=== PATIENT | male | born 1980 | race Caucasian/White ===

== ENCOUNTER 2018-12-28 01:57 | Outpatient (CLI) | payer MEDICARE, MEDICAID, SELFPAY ==
[2018-12-28 14:40] LABS: TROPONIN-I 4.9 ug/mL (4.0-12.0)
[2018-12-30 10:44] LABS: Levetiracetam 10.7 mcg/mL
== END 2018-12-28 02:17 ==
PROVIDERS: PCP Family Medicine; Visit Provider Family Medicine
DX: R56.9 Unspecified convulsions (principal); Z51.81 Encounter for therapeutic drug level monitoring; Z79.899 Other long term (current) drug therapy
CPT/HCPCS: 36415; 80156; 80177

== ENCOUNTER → 2019-02-15 13:43 | Outpatient (BNVA) | payer MEDICARE, MEDICAID, SELFPAY | PROVIDERS: PCP Family Medicine; Referring Provider Family Medicine; Visit Provider Psychiatry & Neurology Neurology | DX: G40.119 Localization-related (focal) (partial) symptomatic epilepsy and epileptic syndromes with simple partial seizures, intractable, without status epilepticus (principal); F81.9 Developmental disorder of scholastic skills, unspecified | CPT/HCPCS: 99205 ==

== ENCOUNTER → 2019-04-17 09:39 | Outpatient (BNVA) | payer MEDICARE, MEDICAID, SELFPAY | PROVIDERS: PCP Family Medicine; Referring Provider Family Medicine; Visit Provider Psychiatry & Neurology Neurology | DX: R56.9 Unspecified convulsions (principal) | CPT/HCPCS: 99213 ==

== ENCOUNTER → 2019-05-15 14:34 | Outpatient (BNVA) | payer MEDICARE, MEDICAID, SELFPAY | PROVIDERS: PCP Family Medicine; Referring Provider Family Medicine; Visit Provider Psychiatry & Neurology Neurology | DX: G40.119 Localization-related (focal) (partial) symptomatic epilepsy and epileptic syndromes with simple partial seizures, intractable, without status epilepticus (principal); F81.9 Developmental disorder of scholastic skills, unspecified | CPT/HCPCS: 99214 ==

== ENCOUNTER → 2019-07-17 13:52 | Outpatient (BNVA) | payer MEDICARE, SELFPAY | PROVIDERS: PCP Family Medicine; Referring Provider Family Medicine; Visit Provider Psychiatry & Neurology Neurology | DX: G40.119 Localization-related (focal) (partial) symptomatic epilepsy and epileptic syndromes with simple partial seizures, intractable, without status epilepticus (principal); F81.9 Developmental disorder of scholastic skills, unspecified | CPT/HCPCS: 99214 ==

== ENCOUNTER → 2019-09-14 13:41 | Outpatient (BNVA) | payer MEDICARE, SELFPAY | PROVIDERS: PCP Family Medicine; Referring Provider Family Medicine; Visit Provider Psychiatry & Neurology Neurology | DX: G40.119 Localization-related (focal) (partial) symptomatic epilepsy and epileptic syndromes with simple partial seizures, intractable, without status epilepticus (principal); F81.9 Developmental disorder of scholastic skills, unspecified | CPT/HCPCS: 99214; 99443 ==

== ENCOUNTER → 2019-10-19 07:44 | Outpatient (BNVA) | payer MEDICARE, MEDICAID, SELFPAY | PROVIDERS: PCP Family Medicine; Referring Provider Family Medicine; Visit Provider Psychiatry & Neurology Neurology | DX: G40.119 Localization-related (focal) (partial) symptomatic epilepsy and epileptic syndromes with simple partial seizures, intractable, without status epilepticus (principal); F81.9 Developmental disorder of scholastic skills, unspecified | CPT/HCPCS: 99214; 99443 ==

== ENCOUNTER → 2019-11-29 12:33 | Outpatient (BNVA) | payer MEDICARE, MEDICAID, SELFPAY | PROVIDERS: PCP Family Medicine; Referring Provider Family Medicine; Visit Provider Psychiatry & Neurology Neurology | DX: G40.119 Localization-related (focal) (partial) symptomatic epilepsy and epileptic syndromes with simple partial seizures, intractable, without status epilepticus (principal); F81.9 Developmental disorder of scholastic skills, unspecified; R68.89 Other general symptoms and signs | CPT/HCPCS: 99214; 99442 ==

== ENCOUNTER 2019-12-04 01:40 | Outpatient (CLI) | payer MEDICARE, MEDICAID, SELFPAY ==
--- NOTE | 2019-12-06 15:29 | PDOC.EEG ---
Neurology EEG EEG: [facility] Department of Neurology LONG-TERM AMBULATORY EEG REPORT Date of Recordin12/04/19 at 14:19:03 to 12/05/19 at 06:30:32 Interpreting Physician: Dr. Rossy Carmen PCP/Referring Provider: Dr. Camilo Brower Reason for study: Mr. Ugarte is a 39 year-old man with medically intractable focal epilepsy and previous left craniotomy who has had an increase in seizure frequency, despite numerous medication changes. Current Medications: Home Medications Medication Instructions Recorded Confirmed Type carbamazepine 200 mg 400 mg PO BID #360 tab-cap 04/17/19 11/29/19 Rx tablet,extended release,12 hr clobazam 10 mg tablet 20 mg PO QHS #60 tab 10/19/19 11/29/19 Rx miscellaneous medical supply 1 each HS #1 each 11/29/19 11/29/19 Rx METHODS: An 18-channel digitized electroencephalogram was recorded in the ambulatory setting with video. The 10/20 international system of electrode placement was used and bipolar and referential electrode montages were recorded. In addition to EEG the patient was monitored for EKG and by video. Activation procedures of photic stimulation and hyperventilation were performed if applicable. The duration of the recording was ~16 hours. DESCRIPTION OF EEG: Waking background activity: During maximal wakefulness a 7-Hz posterior background rhythm was present which was poorly-modulated, symmetrical, reactive to eye opening, and of moderate voltage. Faster frequencies were present in the bilateral anterior head regions. There was a normal anterior-posterior voltage gradient. Drowsy and sleeping background activity: During drowsiness, there was attenuation of the posterior dominant background rhythm and vertex waves. Normal stage II and III sleep was present with symmetrical sleep spindles, K-complexes, and vertex waves with slowing of the background rhythm to delta/theta frequencies. REM sleep manifested by rapid lateral eye movements and faster background rhythms was recorded. Arousal was unremarkable. Interictal abnormalities: He has occasional left temporal spike-waves at T3. These become more frequent during drowsiness and sleep and can occur in non-rhythmic runs <10seconds. He has rare right temporal spike-waves, more frequent during drowsiness and sleep, at T4>T6. He has occasional left > right temporal, independent, polymorphic delta slowing. These were occasionally associated with sharp waves which were not clearly epileptic. He has rare generalized, polymorphic delta slowing during wakefulness. He has no obvious breech rhythm. Ictal findings: No events recorded or reported. Activating Procedures: Photic stimulation was performed which produced a symmetrical posterior driving response at various flash frequencies. Hyperventilation was performed with moderate effort and produced mild-moderate physiological slowing of the background. EKG: EKG revealed normal sinus rhythm. INTERPRETATION: This long-term EEG is abnormal due to: #1. Frequent left temporal (T3) spike-wave discharges, more frequent during drowsiness and sleep, occasionally occurring in short, non-rhythmic bursts. #2. Rare right temporal (T4/T6) spike-wave discharges, more prominent during drowsiness and sleep. #3. Left temporal > right temporal, independent, polymorphic delta slowing. #4. Slowing of the PDR with rare generalized, polymorphic delta slowing. PRIOR EEG: -Amb EEG (05/16/13 at [facility]): normal. No events captured. -vEEG (Jun 2013) at [facility] [place] Interictally, he was noted to have independent bilateral anterior temporal sharp waves at T4 greater than T3; 6 epileptic events captured with some onset on right and some on left; -intracranial EEG (August 2015 x 16 days): 14 events captured with onset in simultaneous areas of the left hemisphere CLINICAL CORRELATION: This recording represents the interictal expression of a localization-related multi-focal epilepsy. No seizures or clinical events were recorded. There were non-rhythmic runs of spike-waves in the left temporal lobe, more often in sleep. It's possible these could cause clinical symptoms. The focal slowing represents areas of focal cerebral dysfunction. The background and generalized slowing is suggestive of a mild diffuse cerebral encephalopathy, consistent with his known cognitive impairment. Rossy Caremn MD
== END 2019-12-04 02:00 ==
PROVIDERS: PCP Family Medicine; Visit Provider Psychiatry & Neurology Neurology
DX: G40.909 Epilepsy, unspecified, not intractable, without status epilepticus (principal)
CPT/HCPCS: 95714; 95720

== ENCOUNTER → 2019-12-07 07:25 | Outpatient (BNVA) | payer MEDICARE, SELFPAY | PROVIDERS: PCP Family Medicine; Referring Provider Family Medicine; Visit Provider Psychiatry & Neurology Neurology | DX: R69 Illness, unspecified (principal) ==

== ENCOUNTER → 2020-01-10 09:23 | Outpatient (BNVA) | payer MEDICARE, SELFPAY | PROVIDERS: PCP Family Medicine; Visit Provider Psychiatry & Neurology Neurology | DX: R69 Illness, unspecified (principal) ==

== ENCOUNTER → 2020-04-10 11:10 | Outpatient (BNVA) | payer MEDICARE, MEDICAID, SELFPAY | PROVIDERS: Visit Provider Psychiatry & Neurology Neurology | DX: G40.119 Localization-related (focal) (partial) symptomatic epilepsy and epileptic syndromes with simple partial seizures, intractable, without status epilepticus (principal); F81.9 Developmental disorder of scholastic skills, unspecified; G40.109 Localization-related (focal) (partial) symptomatic epilepsy and epileptic syndromes with simple partial seizures, not intractable, without status epilepticus | CPT/HCPCS: 99214 ==

== ENCOUNTER → 2020-06-17 08:05 | Outpatient (BNVA) | payer MEDICARE, MEDICAID, SELFPAY | PROVIDERS: Visit Provider Psychiatry & Neurology Neurology | DX: G40.109 Localization-related (focal) (partial) symptomatic epilepsy and epileptic syndromes with simple partial seizures, not intractable, without status epilepticus; G40.119 Localization-related (focal) (partial) symptomatic epilepsy and epileptic syndromes with simple partial seizures, intractable, without status epilepticus; F81.9 Developmental disorder of scholastic skills, unspecified; Z62.810 Personal history of physical and sexual abuse in childhood | CPT/HCPCS: 99443 ==

== ENCOUNTER → 2021-09-23 10:33 | Outpatient (BNVA) | payer MEDICARE, MEDICAID, SELFPAY | PROVIDERS: Visit Provider Psychiatry & Neurology Neurology | DX: G40.119 Localization-related (focal) (partial) symptomatic epilepsy and epileptic syndromes with simple partial seizures, intractable, without status epilepticus (principal); F81.9 Developmental disorder of scholastic skills, unspecified | CPT/HCPCS: 99214 ==

== ENCOUNTER → 2021-11-25 10:34 | Outpatient (BNVA) | payer OTHER, MEDICAID, SELFPAY | PROVIDERS: Visit Provider Psychiatry & Neurology Neurology | DX: G40.119 Localization-related (focal) (partial) symptomatic epilepsy and epileptic syndromes with simple partial seizures, intractable, without status epilepticus (principal); F81.9 Developmental disorder of scholastic skills, unspecified | CPT/HCPCS: 99214 ==

== ENCOUNTER → 2022-03-24 14:52 | Outpatient (BNVA) | payer OTHER, MEDICAID, SELFPAY | PROVIDERS: Visit Provider Psychiatry & Neurology Neurology | DX: F41.9 Anxiety disorder, unspecified (principal); G40.109 Localization-related (focal) (partial) symptomatic epilepsy and epileptic syndromes with simple partial seizures, not intractable, without status epilepticus; F81.9 Developmental disorder of scholastic skills, unspecified | CPT/HCPCS: 99214 ==

== ENCOUNTER 2022-04-07 02:32 | Outpatient (CLI) | payer OTHER, MEDICAID, SELFPAY ==
[2022-04-07 12:43] LABS: HCT 45.3 % (40.0-50.0); HGB 14.8 g/dL (13.5-17.5); MCHC 32.7 % (32.0-36.0); MCV 89 fL (80-95); MPV 10.3 fL (8.0-11.0); Platelet Count 296 10^3/uL (130-400); RDW 12.4 % (11.8-14.1); RDW-SD 40.4 fL; WBC 6.63 10^3/uL (4.4-10.8)
[2022-04-07 13:12] LABS: ALT 39 U/L (16-63); AST 23 U/L (15-37); Albumin 4.1 g/dL (3.4-5.0); Alkaline Phosphatase 111 U/L (46-116); Anion Gap 6.7 mmol/L (3-11); BUN 11 mg/dL (7-18); Bilirubin, Total 0.5 mg/dL (0.2-1.0); CO2 31.3 mmol/L (21.0-32.0); CREATININE 0.9 mg/dL (0.70-1.30); Calcium 8.9 mg/dL (8.5-10.1); Chloride 103 mmol/L (98-107); Estimated GFR 110.04 (mL/min/1.73m2); Glucose 101 mg/dL (74-106); Potassium 4.1 mmol/L (3.5-5.1); Sodium 141 mmol/L (136-145); TROPONIN-I 6.8 ug/mL (4.0-12.0)
[2022-04-08 16:23] LABS: Levetiracetam <2.0 mcg/mL
== END 2022-04-07 02:33 | disposition home or self-care (01) ==
LOC: LOS 02:32
PROVIDERS: Visit Provider Psychiatry & Neurology Neurology
DX: G40.109 Localization-related (focal) (partial) symptomatic epilepsy and epileptic syndromes with simple partial seizures, not intractable, without status epilepticus (principal); G40.119 Localization-related (focal) (partial) symptomatic epilepsy and epileptic syndromes with simple partial seizures, intractable, without status epilepticus; F80.9 Developmental disorder of speech and language, unspecified
CPT/HCPCS: 36415; 80053; 80346; 85027; 80156; 80177

== ENCOUNTER → 2022-09-22 12:44 | Outpatient (BNVA) | payer OTHER, MEDICAID, SELFPAY | PROVIDERS: PCP Nurse Practitioner Family; Visit Provider Psychiatry & Neurology Neurology | DX: G40.119 Localization-related (focal) (partial) symptomatic epilepsy and epileptic syndromes with simple partial seizures, intractable, without status epilepticus (principal); F81.9 Developmental disorder of scholastic skills, unspecified | CPT/HCPCS: 99213 ==

== ENCOUNTER → 2023-03-23 12:56 | Outpatient (BNVA) | payer OTHER, MEDICAID, SELFPAY | PROVIDERS: PCP Nurse Practitioner Family; Referring Provider Nurse Practitioner Family; Visit Provider Psychiatry & Neurology Neurology | DX: G40.119 Localization-related (focal) (partial) symptomatic epilepsy and epileptic syndromes with simple partial seizures, intractable, without status epilepticus (principal); F81.9 Developmental disorder of scholastic skills, unspecified | CPT/HCPCS: 99213 ==

== ENCOUNTER → 2023-09-21 12:48 | Outpatient (BNVA) | payer OTHER, MEDICAID, SELFPAY | PROVIDERS: PCP Nurse Practitioner Family; Referring Provider Nurse Practitioner Family; Visit Provider Psychiatry & Neurology Neurology | DX: G40.109 Localization-related (focal) (partial) symptomatic epilepsy and epileptic syndromes with simple partial seizures, not intractable, without status epilepticus; F81.9 Developmental disorder of scholastic skills, unspecified | CPT/HCPCS: 99213 ==

== ENCOUNTER 2023-09-21 14:24 | Outpatient (CLI) | payer OTHER, MEDICAID, SELFPAY ==
[2023-09-21 13:46] LABS: HCT 42.9 % (40.0-50.0); MCH 28.8 pg (27.0-33.0); MCV 82 fL (80-95); MPV 10.3 fL (8.0-11.0); Platelet Count 282 10^3/uL (130-400); RBC 5.21 10^6/uL (4.36-5.78); RDW 11.8 % (11.8-14.1); RDW-SD 35.1 fL; WBC 7.55 10^3/uL (4.4-10.8)
[2023-09-21 14:18] LABS: BUN 9 mg/dL (7-18); CREATININE 0.8 mg/dL (0.70-1.30); Calcium 9.1 mg/dL (8.5-10.1); Chloride 98 mmol/L (98-107); Cholesterol 314 mg/dL (<200); Estimated GFR 113.32 (mL/min/1.73m2); Glucose 419 mg/dL (74-106); HDL Cholesterol 38 mg/dL (40-60); Potassium 4.2 mmol/L (3.5-5.1); Sodium 137 mmol/L (136-145); Triglyceride 992 mg/dL (<150)
[2023-09-21 14:29] LABS: Hemoglobin A1C 12.4 % (<5.7)
[2023-09-21 14:33] LABS: LDL CHOLESTEROL 99 mg/dL (<100)
== END 2023-09-21 14:25 | disposition home or self-care (01) ==
LOC: LBO 14:25
PROVIDERS: PCP Nurse Practitioner Family; Visit Provider Nurse Practitioner Family
DX: E66.9 Obesity, unspecified (principal); Z00.00 Encounter for general adult medical examination without abnormal findings; G40.119 Localization-related (focal) (partial) symptomatic epilepsy and epileptic syndromes with simple partial seizures, intractable, without status epilepticus; R03.0 Elevated blood-pressure reading, without diagnosis of hypertension; R73.09 Other abnormal glucose
CPT/HCPCS: 36415; 80048; 80061; 83721; 85027; 83036

== ENCOUNTER → 2023-11-22 10:49 | Outpatient (BNVA) | payer OTHER, MEDICAID, SELFPAY | PROVIDERS: PCP Nurse Practitioner Family; Referring Provider Nurse Practitioner Family; Visit Provider Psychiatry & Neurology Neurology ==

== ENCOUNTER 2024-01-12 09:11 | Emergency (ER) | payer OTHER, MEDICAID, SELFPAY ==
[2024-01-12] VITALS (7 sets, daily range): BP systolic 115–131; BP diastolic 70–75; PULSE 75–97; RESP 20; TEMP 36.2; O2SAT 95–99
--- NOTE | 2024-01-12 09:25 | W.ED.GENAD ---
Discharge Plan Disposition Patient Disposition: Home Condition: Stable Discharge Details Clinical Impression: Seizure Primary Care Provider: Judi Hess ED Provider: Julius Costa Home Meds and New Rx's Prescriptions: Continued miscellaneous medical supply Misc 1 each MC HS Qty: 1 0RF Rx Instructions: CBD oil sertraline 25 mg tablet 25 mg PO DAILY Qty: 90 3RF Rx Instructions: Along with 50mg daily for total of 75mg daily sertraline 50 mg tablet 50 mg PO DAILY Qty: 90 3RF atorvastatin 20 mg tablet 20 mg PO QHS Qty: 90 3RF metformin 500 mg tablet 500 mg PO BID Qty: 180 4RF Rx Instructions: Take 1 tablet twice a day brivaracetam 50 mg tablet 50 mg PO BID Qty: 180 1RF carbamazepine 200 mg tablet extended release 12 hr 400 mg PO BID Qty: 360 3RF clobazam 20 mg tablet 20 mg PO QHS Qty: 30 5RF Rx Instructions: along with 10mg in am clobazam 10 mg tablet 10 mg PO DAILY Qty: 30 5RF Rx Instructions: along with 20mg HS Discharge Instructions Additional Instructions: Take your medication as prescribed to help prevent multiple seizures Follow-up with your primary care provider and neurologist If you feel more ill or have new symptoms such as high fevers or difficulty breathing return to the emergency department for reevaluation HPI General Mode of arrival: ambulatory. Date/Time Provider Initiated Documentation: 01/12/24 09:11. Information obtained by: patient and family. History of Present Illness 43 year old M presents to the emergency department with the chief complaint of seizures, described as moderate, Patient started experiencing this year(s) and it has been intermittent. No relieving factors improve symptom(s), No exacerbating factors reported . Patient notes headaches; denies chest pain, fever/chills and shortness of breath. Related Data Home Medications ?Medication ?Instructions ?Recorded ?Confirmed miscellaneous medical supply 1 each miscellaneous HS #1 ea 11/29/19 01/12/24 sertraline 50 mg tablet 50 mg PO DAILY #90 tabs 06/27/23 01/12/24 sertraline 25 mg tablet 25 mg PO DAILY #90 tabs 09/21/23 01/12/24 atorvastatin 20 mg tablet 20 mg PO QHS #90 tabs 01/11/24 01/12/24 brivaracetam 50 mg tablet 50 mg PO BID #180 tabs 01/11/24 01/12/24 carbamazepine 200 mg 400 mg (2 x 200 mg) PO BID #360 01/11/24 01/12/24 tablet,extended release,12 hr tab-caps clobazam 10 mg tablet 10 mg PO DAILY #30 tabs 01/11/24 01/12/24 clobazam 20 mg tablet 20 mg PO QHS #30 tabs 01/11/24 01/12/24 metformin 500 mg tablet 500 mg PO BID #180 tabs 01/11/24 01/12/24 Previous Rx's ?Medication ?Instructions ?Recorded miscellaneous medical supply 1 each miscellaneous HS #1 ea 11/29/19 sertraline 50 mg tablet 50 mg PO DAILY #90 tabs 06/27/23 sertraline 25 mg tablet 25 mg PO DAILY #90 tabs 09/21/23 atorvastatin 20 mg tablet 20 mg PO QHS #90 tabs 01/11/24 brivaracetam 50 mg tablet 50 mg PO BID #180 tabs 01/11/24 carbamazepine 200 mg 400 mg (2 x 200 mg) PO BID #360 01/11/24 tablet,extended release,12 hr tab-caps clobazam 10 mg tablet 10 mg PO DAILY #30 tabs 01/11/24 clobazam 20 mg tablet 20 mg PO QHS #30 tabs 01/11/24 metformin 500 mg tablet 500 mg PO BID #180 tabs 01/11/24 Allergies Allergy/AdvReac Type Severity Reaction Status Date / Time No Known Allergies Allergy Verified 12/28/23 11:23 General Stated Complaint: Seizure RILEY: 3 Review of Systems All systems reviewed & are unremarkable except as noted in HPI and below Constitutional Constitutional: Denies chills, Denies fever(s) and Denies weakness Eyes Eyes: Denies loss of vision Cardiovascular Cardiovascular: Denies chest pain and Denies dyspnea Respiratory Respiratory: Denies cough and Denies dyspnea Gastrointestinal Gastrointestinal: Denies abdominal pain, Denies nausea and Denies vomiting Genitourinary Genitourinary: Denies dysuria Neurologic Neurologic: Denies loss of vision and Denies weakness Exam Const General: no acute distress Orientation: alert HENMT Ears: external ears normal General nose exam: external nose normal Mouth: moist mucous membranes Eyes General: appearance normal, both eyes and all related structures Neck Neck: normal visual inspection Resp Effort & Inspection: normal respiratory effort and able to speak in complete sentences Cardio Rate: regular rate Skin General skin exam: no rashes or lesions noted Neuro General: patient alert Extrem General: normal to inspection Psych Mental Status: mental status grossly normal Course Vital Signs Vital signs: Vital Signs Temperature 36.2 C L 01/12/24 09:13 Pulse 97 H 01/12/24 09:13 Respiratory Rate 20 01/12/24 09:13 Blood Pressure 131/75 01/12/24 09:13 Pulse Oximetry 97 01/12/24 09:13 Temperature 36.2 C L 01/12/24 09:13 Temperature Source Skin 01/12/24 09:13 Pulse 97 H 01/12/24 09:13 Respiratory Rate 20 01/12/24 09:13 Blood Pressure 131/75 01/12/24 09:13 Blood Pressure Position Sitting 01/12/24 09:13 Pulse Oximetry 97 01/12/24 09:13 Oxygen Delivery Method Room Air 01/12/24 09:13 Oxygen Flow Rate 0 01/12/24 09:13 Pain Level 8 01/12/24 09:13 Medical Decision Making 43-year-old male with a history of focal epilepsy, cognitive developmental delay, diabetes, who comes in with his father with seizures occurring daily. He has episodes where he is aphasic lasting less than a minute and he remembers them. He has not had any tonic-clonic seizures, no fevers, he does note that he had intermittent dull headaches. No vomiting, no chest pain, no difficulty breathing. He has a nonfocal exam. Ambulating without assistance. Full range of motion of his neck. His father does relate that the patient has not been taking his seizure meds routinely and thinks he has been off them for a week or longer. When I asked the patient about this he says that he has not think that he needs them. I stressed with him that he will likely have increasing frequency of seizures if he is not taking his meds routinely. Suspect the increase in seizure frequency is from medication noncompliance but will check a CBC and CMP and also CT head. He has no fevers and no meningismus so doubt MANAGER GRANT infection. Labs and imaging unremarkable, patient met with care management who is going to assist them in trying to make sure he takes his meds consistently as an outpatient. Care management is going to send outpatient referrals to appropriate agencies. Patient has been stable here and has not had recurrent seizures. He will follow-up with his PCP and return precautions given Differential Diagnosis Differential Diagnosis: Seizure disorder, medication noncompliance Medical Records Medical records reviewed: Yes I reviewed the patient's medical records. Imaging Data Radiologic Study: Attestation: I personally reviewed and interpreted this imaging study as follows: Imaging: CT Scan Radiologist's impression: no acute findings Lab Data Lab results reviewed: Yes I reviewed the patient's lab results. Quality:SDOH Health Related Social Needs: No Data to Display [facility] All Active Problems (Updated 01/12/24 @ 11:25 by Julius Costa MD) Hyperlipidemia (Acute) Diabetes mellitus type 2, uncomplicated (Acute) Diagnosed 09/23/23 Screening cholesterol level (Acute) Encounter for annual physical exam (Acute) Focal epilepsy with impairment of consciousness, intractable (Acute) Cognitive developmental delay (Acute) Temporal lobe epilepsy (Acute) Elevated BP without diagnosis of hypertension (Acute) Impacted cerumen of both ears (Acute) Obesity (Chronic) BMI 31 (09/19) Seizure (Chronic 05/13/06) one episode 08/18 and a second 10/18; EEG=neg. 09/18; head CT neg. 08/18 Craniotomy with electodes 2016 with focus in left temporal lobe to large for resection Speech delay (Chronic) stutter Surgical History S/P craniotomy for seizure localization; 2016 at [facility] [place] Family History Mother , 40 Cancer breast Father No problems noted. Brother No problems noted. 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 Pets and animals: No Sexually active: No Do you think of yourself as: straight/heterosexual Current gender identity: male What is your relationship status?: refused to answer How often do you talk on the phone with friends or family?: once per week How often do you get together with friends or relatives?: decline to answer How often do you attend sabianism or samaritan services?: decline to answer Do you belong to any clubs or organized social groups?: decline to answer Panel score (0-1 are the most socially isolated patients): 0 What type of physical activity do you participate in: weight lifting Duration: 15-30 minutes/day Frequency: does not exercise Mirta/Sabianist: Confucianism Special mirta needs: No Seatbelt use: always Helmet use: Yes Helmet use: always Drive intox or ride w/intox special needs bus driver: No Firearms in home: Yes Firearms unloaded and locked: Yes Do you feel safe at home: Yes Victim of physical abuse: No Victim of emotional abuse: No Victim of sexual abuse: No Would you like helpful sources: No Additional Social history: Lives with stepfather (uncle) and brother.
[2024-01-12] MEDS: carBAMazepine 200 MG TAB 400 MG PO (09:35)
[2024-01-12] MEDS: Clobazam 10mg TAB 10 MG PO (09:36)
[2024-01-12 09:38] LABS: Abs Immature Grans 0.03 10^3/uL (0.0-0.06); Absolute Basophil Count 0.05 10^3/uL (0.0-0.2); Absolute Monocyte Count 0.61 10^3/uL (0.1-0.8); Absolute Neutrophil Count 5.83 10^3/uL (1.2-6.7); Basophils % 0.6 %; Eosinophils % 1.2 %; HCT 42.4 % (40.0-50.0); Immature Grans % 0.4 %; Lymphocytes % 21.4 %; MCV 88 fL (80-95); MPV 9.7 fL (8.0-11.0); Monocytes % 7.2 %; Neutrophils % 69.2 %; Platelet Count 286 10^3/uL (130-400); RBC 4.83 10^6/uL (4.36-5.78); RDW 11.8 % (11.8-14.1); WBC 8.42 10^3/uL (4.4-10.8)
--- NOTE | 2024-01-12 09:44 | NUR.NOTE ---
Nursing Note: 0976 this RN witnessed seizure like activity. PT's arms and legs were stiff with slight movement in legs last approx 30 seconds. When activity stopped PT continued talking at baseline.
[2024-01-12 09:59] LABS: ALT 65 U/L (16-63); AST 36 U/L (15-37); Albumin 4.1 g/dL (3.4-5.0); Alkaline Phosphatase 92 U/L (46-116); Anion Gap 10.1 mmol/L (3-11); BUN 8 mg/dL (7-18); Bilirubin, Total 1.11 mg/dL (0.2-1.0); CO2 26.9 mmol/L (21.0-32.0); CREATININE 0.8 mg/dL (0.70-1.30); Calcium 8.7 mg/dL (8.5-10.1); Chloride 102 mmol/L (98-107); Estimated GFR 112.61 (mL/min/1.73m2); Glucose 142 mg/dL (74-106); Magnesium 2.3 mg/dL (1.8-2.4); Potassium 4.3 mmol/L (3.5-5.1); Sodium 139 mmol/L (136-145); Total Protein 7.9 g/dL (6.4-8.2)
[2024-01-12 10:17] LABS: TROPONIN-I < 0.5 ug/mL (4.0-12.0)
--- NOTE | 2024-01-12 10:36 | DI.CT_ITS ---
Exam(s) CT HEAD WO EXAM: CT HEAD WO CLINICAL HISTORY: seizures, headaches. TECHNIQUE: Imaging Protocol: Axial computed tomography images with coronal and sagittal reformatted images were created and reviewed COMPARISON: No exams were available for comparison FINDINGS: Ventricles and Extra axial spaces: Normal in size and morphology for the patient's age. Hemorrhage: None. Cerebral parenchyma: No evidence of acute infarct or mass. Midline shift: None. Brainstem/Cerebellum: Normal. Calvarium: Left temporal craniotomy. Visualized Paranasal sinuses:Clear. Mastoids: Clear. Soft Tissues: Unremarkable. ORBITS: Unremarkable. PITUITARY: Not enlarged. IMPRESSION: No acute intracranial process. RADIATION DOSE DELIVERED: Total DLP DATA REPOSITORY: All CT scans at this facility are submitted to the National Radiology Data Registry (NRDR) Dose Index Registry (DIR) with the [employer] (ACR). RADIATION OPTIMIZATION: All CT scans at this facility use at least one of these dose optimization te chniques: automated exposure control; mA and/or kV adjustment per patient size (includes targeted exa ms where dose is matched to clinical indication); or iterative reconstruction.
--- NOTE | 2024-01-12 14:00 | PDOC.CMPRO ---
Date of service: 01/12/24 Care Management Progress Note Progress Note Text Progress Note Text: CM consulted for assessment. Sagrario was lying in bed, father standing at bedside. Sagrario and his father verbalized understanding the need for medication compliance as related to seizure activity. MD and Sagrario report seizure as a result of missing medications. Sagrario's father reports he will begin cueing Sagrario to take medication when he takes his own. Discussed possibility of setting an alarm as well. Sagrario and his Dad processed seizure, identifying how scary it was, and wanting to avoid reoccurrence, if possible. CM to refer to [facility] for outreach and determination of most appropriate CM connection: PCP CM, [facility], [facility], [facility] to follow patient for team based care referral. Discharge Anticipated Barriers to Discharge: None Identified Patient/Family Education Needs: Review discharge instructions, discuss Ask Me Three Transportation: Private vehicle (With father) Plan: Sagrario will return home with plan for daily medication compliance. CM to send referral to [facility] for patient follow up and CM attachment-focus on medication compliance and service supports, possible team based care. MH Services (Omit if N/A) Current MH Services: Internal [facility] (IDDS? ) Referred to Internal [facility] (ED embedded) case worker?: No SDOH(Care Management) Screening Will the Patient Participate in the Screening?: Unable to obtain Health Related Social Needs Health related social needs details: Cog Developmental Delay, Anxiety Interventions Referrals and interventions: [facility]-determination re: team based care: lead CM to support Sagrario in health literacy and medical compliance. Care Management Referrals: [facility]
== END 2024-01-12 13:28 | disposition home or self-care (01) ==
PROVIDERS: Emergency Provider Emergency Medicine; PCP Nurse Practitioner Family
DX: G40.109 Localization-related (focal) (partial) symptomatic epilepsy and epileptic syndromes with simple partial seizures, not intractable, without status epilepticus (principal); R62.59 Other lack of expected normal physiological development in childhood; E11.9 Type 2 diabetes mellitus without complications; T50.996A Underdosing of other drugs, medicaments and biological substances, initial encounter; E78.5 Hyperlipidemia, unspecified; Z91.128 Patient's intentional underdosing of medication regimen for other reason
CPT/HCPCS: 36415; 80053; 99284; 70450; 80156; 83735; 85025

== ENCOUNTER → 2024-03-01 13:05 | Outpatient (BNVA) | payer OTHER, MEDICAID, SELFPAY | PROVIDERS: PCP Nurse Practitioner Family; Referring Provider Nurse Practitioner Family; Visit Provider Psychiatry & Neurology Neurology | DX: G40.119 Localization-related (focal) (partial) symptomatic epilepsy and epileptic syndromes with simple partial seizures, intractable, without status epilepticus (principal); G40.109 Localization-related (focal) (partial) symptomatic epilepsy and epileptic syndromes with simple partial seizures, not intractable, without status epilepticus; F81.9 Developmental disorder of scholastic skills, unspecified | CPT/HCPCS: 99213 ==

== ENCOUNTER → 2025-02-27 13:03 | Outpatient (BNVA) | payer MEDICARE, MEDICAID, SELFPAY | PROVIDERS: PCP Nurse Practitioner Family; Referring Provider Nurse Practitioner Family; Visit Provider Psychiatry & Neurology Neurology | DX: G40.119 Localization-related (focal) (partial) symptomatic epilepsy and epileptic syndromes with simple partial seizures, intractable, without status epilepticus (principal); F81.9 Developmental disorder of scholastic skills, unspecified | CPT/HCPCS: 99214 ==